=== PATIENT | male | born 1965 | race Caucasian/White ===

== ENCOUNTER 2016-11-20 08:49 | Emergency (ER) | payer OTHER ==
[~2016-11-20] VITALS: Ht 165.1 cm; Wt 112.0 kg
[~2016-11-20 08:49] MED LIST: HYDR-3498 PO; IBUP800T25 PO; NAPR-260 PO; TRAM50TA2 PO
[2016-11-20 09:11] VITALS: Ht 165.1 cm; Wt 112.0 kg
[2016-11-20] MEDS ORDERED: ONDANSETRON 4 MG INJ IV STA (11:00)
[2016-11-20] MEDS ORDERED: morphine 4 MG/ML VIAL IV STA (11:00)
[2016-11-20] MEDS ORDERED: SOD CHLORIDE 0.9% 1,000 ML IV STA (11:00)
[2016-11-20] MEDS ORDERED: OMEP20CA16 PO (11:34)
[2016-11-20] MEDS ORDERED: ONDA4TAB8 PO (11:35)
[2016-11-20 11:38] LABS: ADD SCAN DIFF NO
[2016-11-20 11:39] LABS: ADD UMIC YES; URINE BILIRUBIN (Dip) NEGATIVE (NEGATIVE); URINE BLOOD (Dip) NEGATIVE (NEGATIVE); URINE COLOR LT. YELLOW (YELLOW); URINE GLUCOSE (Dip) NEGATIVE (NEGATIVE); URINE KETONES (Dip) NEGATIVE (NEGATIVE); URINE LEUKOCYTE ESTERASE (Dip) NEGATIVE (NEGATIVE); URINE NITRITE (Dip) NEGATIVE (NEGATIVE); URINE TOTAL PROTEIN (Dip) TRACE (NEGATIVE); URINE UROBILINOGEN (Dip) 1.0 E.U./dL (0.1-1.0)
[2016-11-20] MEDS ORDERED: OSLT75C PO (11:39)
[2016-11-20] MEDS ORDERED: AMO500 PO (11:39)
[2016-11-20] MEDS ORDERED: IBUP-1542 PO (11:40)
[2016-11-20 11:42] LABS: BASOPHILS % 0.6 % (0.0-2.0); EOSINOPHILS # 0.5 10^3/ul (0.0-0.5); EOSINOPHILS % 10.2 % (0.0-7.0); HEMOGLOBIN 15.1 g/dl (14.0-18.0); LYMPHOCYTES % 38.4 % (15.0-51.0); MEAN CORPUSCULAR HEMOGLOBIN 28.1 pg (29.0-33.0); MEAN CORPUSCULAR HGB CONC 32.8 g/dl (32.0-37.0); MEAN CORPUSCULAR VOLUME 85.7 fl (82.0-101.0); MEAN PLATELET VOLUME 10.5 fl (7.4-10.4); MONOCYTE # 0.5 10^3/ul (0.3-0.9); MONOCYTES % 9.8 % (0.0-11.0); NEUTROPHIL # 2.1 10^3/ul (1.6-7.5); NEUTROPHILS % 40.8 % (39.0-77.0); PLATELET COUNT 226 10^3/UL (140-415); RED BLOOD COUNT 5.37 10^6/ul (4.70-6.10); WHITE BLOOD COUNT 5.1 10^3/ul (4.8-10.8)
[2016-11-20 11:52] LABS: INR 1.01; PROTIME 13.3 Sec (12.2-14.2)
[2016-11-20 11:53] LABS: PARTIAL THROMBOPLASTIN TIME 31.7 Sec (25.0-35.0)
[2016-11-20 11:54] LABS: ALANINE AMINOTRANSFERASE 36 IU/L (13-69); ALBUMIN 4.2 g/dl (3.3-4.9); ALBUMIN/GLOBULIN RATIO 1.13; ALKALINE PHOSPHATASE 98 IU/L (42-121); AMYLASE 101 U/L (11-123); ANION GAP 13 (8-16); ASPARTATE AMINO TRANSFERASE 32 IU/L (15-46); BILIRUBIN,INDIRECT 0.2 mg/dl (0-1.1); BILIRUBIN,TOTAL 0.2 mg/dl (0.2-1.3); BLOOD UREA NITROGEN 12 mg/dl (7-20); CALCIUM 8.7 mg/dl (8.4-10.2); CARBON DIOXIDE 28 mmol/L (21-31); CHLORIDE 101 mmol/L (97-110); CREATININE 0.69 mg/dl (0.61-1.24); GLUCOSE 111 mg/dl (70-220); POTASSIUM 3.7 mmol/L (3.5-5.1); SODIUM 138 mmol/L (135-144); TOTAL PROTEIN 7.9 g/dl (6.1-8.1)
--- NOTE | 2016-11-20 12:00 | ERD ---
ER Documentation Chief Complaint Date/Time DATE: 11/20/16 TIME: 11:55 Chief Complaint HAS AP HAS DIARRHEA ALSO HAS COUGH HPI This is a 51-year-old Vietnamese-speaking male presents to the emergency department complaining of abdominal pain that has been present for the past 3 days. The patient indicates the abdominal pain is a cramping like sensation and he has had multiple episodes of loose watery stools. 2 days ago the patient went to a clinic and was prescribed amoxicillin 500 mg twice daily, Zofran, Pepto-Bismol and omeprazole as well as ibuprofen. The patient indicates he was told he was placed on the amoxicillin for acute bronchitis as he is also been complaining of a nonproductive cough that has been present since the onset of his diarrhea and abdominal pain, 3 days prior to arrival. The patient states he has no shortness of breath at rest or exertion. He denies any hemoptysis hematemesis or melanotic stools. He indicates the ibuprofen helps with his abdominal cramping but as soon as the medication wears off the cramping will return in the cramping is exacerbated just prior to experiencing loose watery stools and is intermittent. He denies any back pain. He has no frequency urgency or dysuria. He denies any recent travel, prolonged immobilization and no recent hospitalizations. The patient indicates that since taking the amoxicillin his cough has improved but his abdominal cramping and diarrhea still persists. ROS All systems reviewed and are negative except as per history of present illness. Medications Home Meds Reported Medications Ibuprofen* (Motrin*) 600 Mg Tab, 600 MG PO Q6H Y for PAIN, TAB 11/20/16 Oseltamivir Phosphate* (Tamiflu*) 75 Mg Capsule, 75 MG PO BID, CAP STARTED 11-18-16 FOR 5 DAYS 11/20/16 Amoxicillin* (Amoxicillin*) 500 Mg Cap, 500 MG PO TID, #30 CAP STARTED 11-19-16 FOR 10 DAYS 11/20/16 Ondansetron Hcl* (Zofran*) 4 Mg Tablet, 4 MG PO Q6H Y for NAUSEA AND OR VOMITING , TAB 11/20/16 Omeprazole* (Omeprazole*) 20 Mg Capsule.dr, 20 MG PO DAILY, #30 CAP 11/20/16 Discontinued Scripts Tramadol HCl (Tramadol HCl) 50 Mg Tablet, 25 MG PO Q4 Y for PAIN, #20 TAB Prov:LOZA,GITA I. PERCUSSION INSTRUMENT REPAIRER 12/19/15 Naproxen* (Naprosyn*) 500 Mg Tablet, 500 MG PO BID Y for PAIN AND/OR INFLAMMATION, #30 TAB Prov:SOPHIA CHANEL DO 11/24/15 Hydrocodone Bit-Acetaminophen* (Tabor*) 5-325 Mg Tab, 1 TAB PO Q6 Y for PAIN, # 15 TAB Prov:SOPHIA CHANEL DO 11/24/15 Hydrocodone Bit-Acetaminophen* (Tabor*) 5-325 Mg Tab, 1 TAB PO Q6 Y for SEVERE PAIN LEVEL 7-10, #7 TAB Prov:JONATHAN,JEFERSON X. PERCUSSION INSTRUMENT REPAIRER 11/20/15 Ibuprofen* (Motrin*) 800 Mg Tab, 800 MG PO Q8 for PAIN AND OR ELEVATED TEMP, # 30 TAB Prov:JONATHAN,JEFERSON X. PERCUSSION INSTRUMENT REPAIRER 11/20/15 Allergies Allergies: Coded Allergies: No Known Allergy (Unverified , 11/20/16) PMhx/Soc History of Surgery: No Anesthesia Reaction: No Hx Neurological Disorder: No Hx Respiratory Disorders: No Hx Cardiac Disorders: No Hx Psychiatric Problems: No Hx Miscellaneous Medical Probl: No Hx Alcohol Use: No Hx Substance Use: No Hx Tobacco Use: No Physical Exam Vitals Vital Signs Date Time Temp Pulse Resp B/P Pulse Ox O2 Delivery O2 Flow Rate FiO2 11/20/16 09:11 98.6 80 18 158/86 95 Physical Exam Constitutional:Well-developed. Well-nourished. HEENT:Normocephalic. Atraumatic.Pupils were equal round reactive to light. Moist mucous membranes.No tonsillar exudates. Neck: No nuchal rigidity. No lymphadenopathy. No posterior cervical spine tenderness or step-offs. Respiratory: Not using accessory muscles of respiration.Lungs were clear to auscultation bilaterally. No rhonchi. No rales. No wheezing. Cardiovascular: Regular rate regular rhythm.No murmurs. No rubs were appreciated.S1, S2 normal. Distal pulses are palpable 2+ bilaterally. GI: Abdomen was obese so exam is limited due to body habitus. Tenderness in the left lower quadrant. Non Distended. No pulsatile abdominal masses or bruits. No rebound. No guarding. Bowel sounds were present and normal. Muscle skeletal: Full range of motion of both the upper and lower extremities bilaterally.Normal muscle tone.No assymetrical calf tenderness or swelling. Skin: No petechia, no purpura. No lesions on the palms or the soles of the feet. No maculopapular rash. NEURO: Patient was alert, awake, orientated x3.No facial droop. Gait observed and patient ambulates with a cane and this is his baseline. Speech had regular rate and rhythm. No focal neurological deficits. Result Diagram: 11/20/16 1120 11/20/16 1120 Results 24 hrs Laboratory Tests Test 11/20/16 11:00 11/20/16 11:20 Urine Color LT. YELLOW Urine Clarity CLEAR Urine pH 6.0 Urine Specific [place] 1.020 Urine Ketones NEGATIVE Urine Nitrite NEGATIVE Urine Bilirubin NEGATIVE Urine Urobilinogen 1.0 E.U./dL Urine Leukocyte Esterase NEGATIVE Urine Microscopic RBC NONE SEEN/HPF Urine Microscopic WBC 0-2/HPF Urine Hemoglobin NEGATIVE Urine Glucose NEGATIVE% Urine Total Protein TRACE White Blood Count 5.110^3/ul Red Blood Count 5.3710^6/ul Hemoglobin 15.1g/dl Hematocrit 46.0% Mean Corpuscular Volume 85.7fl Mean Corpuscular Hemoglobin 28.1pg Mean Corpuscular Hemoglobin Concent 32.8g/dl Red Cell Distribution Width 13.0% Platelet Count 82880^3/UL Mean Platelet Volume 10.5fl Neutrophils % 40.8% Lymphocytes % 38.4% Monocytes % 9.8% Eosinophils % 10.2% Basophils % 0.6% Nucleated Red Blood Cells % 0.0/100WBC Neutrophils # 2.110^3/ul Lymphocytes # 2.010^3/ul Monocytes # 0.510^3/ul Eosinophils # 0.510^3/ul Basophils # 0.010^3/ul Nucleated Red Blood Cells # 0.010^3/ul Prothrombin Time 13.3Sec Prothrombin Time Ratio 1.0 INR International Normalized Ratio 1.01 Activated Partial Thromboplast Time 31.7Sec Sodium Level 138mmol/L Potassium Level 3.7mmol/L Chloride Level 101mmol/L Carbon Dioxide Level 28mmol/L Anion Gap 13 Blood Urea Nitrogen 12mg/dl Creatinine 0.69mg/dl Glucose Level 111mg/dl Calcium Level 8.7mg/dl Total Bilirubin 0.2mg/dl Direct Bilirubin 0.00mg/dl Indirect Bilirubin 0.2mg/dl Aspartate Amino Transf (AST/SGOT) 32IU/L Alanine Aminotransferase (ALT/SGPT) 36IU/L Alkaline Phosphatase 98IU/L Troponin I < 0.012ng/ml Total Protein 7.9g/dl Albumin 4.2g/dl Globulin 3.70g/dl Albumin/Globulin Ratio 1.13 Amylase Level 101U/L Lipase 54U/L Current Medications Medications (Trade) Dose Ordered Sig/Alejandro Route PRN Reason Start Time Stop Time Status Last Admin Dose Admin Sodium Chloride (NS) 1,000 ml @ 1,000 mls/hr Q1H STAT IV 11/20/16 11:00 11/20/16 11:59 DC 11/20/16 11:42 Morphine Sulfate (morphine) 4 mg ONCE STAT IV 11/20/16 11:00 11/20/16 11:09 DC 11/20/16 11:41 Ondansetron HCl (Zofran Inj) 4 mg ONCE STAT IV 11/20/16 11:00 11/20/16 11:09 DC 11/20/16 11:41 IV Flush 10 ml 10 ml STK-MED ONCE .ROUTE 11/20/16 12:18 11/20/16 12:19 DC 11/20/16 12:38 Sodium Chloride (NS) 100 ml @ ud STK-MED ONCE .ROUTE 11/20/16 12:18 11/20/16 12:19 DC 11/20/16 12:39 Iohexol (Omnipaque 300mg/ ml) 150 ml STK-MED ONCE .ROUTE 11/20/16 12:18 11/20/16 12:19 DC 11/20/16 12:39 Procedures/MDM This patient presented to the emergency department with abdominal pain and was seen and evaluated by myself. My differential diagnosis included but was not limited to abdominal aortic aneurysm, appendicitis, pancreatitis, perforated peptic ulcer, perforated viscus, Boerhaaves syndrome or visceral pain such as diverticulitis, DKA, esophagitis, hepatitis or bowel obstruction. The patient was placed on a gambling monitor, continuous pulse oximetry, and IV access was established by nursing staff. The patient received IV fluids, intravenous morphine Zofran and was given Lomotil as an antidiarrheal. I did feel his symptoms were likely result of a viral etiology. However given the reproducible tenderness in the left lower quadrant I did feel is necessary to obtain a CT scan of the abdomen to rule out a bacterial process or surgical complication such as diverticulitis with perforation. CT scan or and reviewed by myself indicated the followin. Diverticulosis of the descending and sigmoid colon but no CT evidence of diverticulitis. 2. Unremarkable appendix. 3. Negative for intra-abdominal free air fluid abscesses or lymphadenopathy. 4. No evidence of urinary calcified calculi or obstructive uropathy. 5. Mild hepatic fatty infiltration. 6. Tiny fat containing umbilical hernia but no herniated bowel or strangulation. 12 Lead EKG tracing ordered and reviewed by myself showed in order to evaluate for atypical myocardial infarction: Sinus bradycardia 59 bpm and no arrhythmia. ND interval normal. QRS duration widened at 148 ms consistent with a right bundle branch block No ST segment elevation No ST segment depression. No changes consistent with acute ischemia. Observation Note: Time: 5 hours Family Hx: No Hypertension Evaluation: Multiple exams showed improving symptoms and no evidence of peritoneal signs. His pain completely resolved and I did feel symptoms were result of diverticulosis The patient was discharged home in fair condition. They were instructed to return to the emergency department at any time if there was any worsening of their condition. The patient stated they would follow up with their PCP in the next 24-48 hours to initiate a suitable medication regimen under the care of their PCP as well as to allow their PCP to monitor any drug reactions. The patient was discharged home with prescriptions after they gave informed consent to the new medication. They were also fully informed by myself on the adverse effects and adverse drug interactions in order to provide adequate safeguards to prevent possible adverse reactions to medications. Departure Diagnosis: Primary Impression: Diverticulosis Diverticulosis site: diverticulosis of large intestine Diverticulosis bleeding: diverticulosis without bleeding Qualified Code: K57.30 - Diverticulosis of large intestine without hemorrhage Condition: Fair RUPERT MACEDO Nov 20, 2016 12:00
[2016-11-20 12:03] LABS: URINE RBCS NONE SEEN /HPF (0)
[2016-11-20 12:18] LABS: TROPONIN-I < 0.012 ng/ml (0.00-0.12)
[2016-11-20] MEDS ORDERED: IOHEXOL 300MG/ML 150 ML BTL ONE (12:18)
[2016-11-20] MEDS ORDERED: SOD CHLORIDE 0.9% 100 ML ONE (12:18)
--- NOTE | 2016-11-20 12:46 | RADRPT ---
PROCEDURE: XR Chest. CLINICAL INDICATION: Chest pain TECHNIQUE: Single portable view of the chest was obtained COMPARISON: 11/24/2015 FINDINGS: The heart is enlarged. The lungs are clear. There is no pleural effusion or pneumothorax. RPTAT: AA IMPRESSION: Mild Cardiomegaly. .Vin Young MD, MD Date Time Electronically viewed and signed by .Vin Young MD, on 11/20/2016 12:45 .S/
--- NOTE | 2016-11-20 13:02 | RADRPT ---
PROCEDURE: CT Abdomen and pelvis with contrast. CLINICAL INDICATION: Abdominal pain and diarrhea TECHNIQUE: CT scan of the abdomen and pelvis with contrast was performed on a multidetector high-r esolution CT scan. The patient was scanned following the uncomplicated intravenous administration o f 100 ml Omnipaque-300. Coronal and sagittal reformatted images were obtained from the axial source images. Standard CT of the abdomen pelvis with contrast protocols were performed. The total exam CTDI equals 23.41 mGy and the total exam DLP equals 1489.64 mGy-cm. One or more of the following dose reduction techniques were used: - Automated exposure control. - Adjustment of the mA and/or kV according to patient size. Use of iterative reconstruction technique. COMPARISON: CT abdomen pelvis without contrast 11/24/2015 FINDINGS: There is diverticular changes of the descending and to a much lesser extent sigmoid colon without CT evidence of diverticulitis. The transverse and ascending colon are undistended but otherwise unrem arkable. The appendix is unremarkable. The stomach and small bowel are unremarkable. Negative for intra-abdominal free air, free fluid, abscesses or lymphadenopathy. The kidneys are normal in size without evidence of calcified renal calculi, hydronephrosis or ventra l masses bilaterally. Urinary bladder is contracted but otherwise unremarkable. The prostate gland is unremarkable. The liver is normal in size with mild hepatic fatty infiltration but no focal hepatic lesions. The s pleen pancreas and adrenal glands are unremarkable. The gallbladder is unremarkable and there is no evidence of biliary ductal dilation. The aorta is unremarkable. The lung bases are unremarkable. There is mild degenerative changes low er thoracic and lumbar spine. There are no acute osseous findings are osteoblastic/osteolytic lesio ns. There is a tiny umbilical fat-containing hernia but no herniated bowel or strangulation. IMPRESSION: 1. Diverticulosis of the descending and sigmoid colon but no CT evidence of diverticulitis. 2. Unremarkable appendix. 3. Negative for intra-abdominal free air fluid abscesses or lymphadenopathy. 4. No evidence of urinary calcified calculi or obstructive uropathy. 5. Mild hepatic fatty infiltration. 6. Tiny fat containing umbilical hernia but no herniated bowel or strangulation. RPTAT:AAJJ B Edward, Physician Date Time Electronically viewed and signed by Kay Leon Physician on 11/20/2016 13:01 BM/
[2016-11-20] MEDS ORDERED: HYDR-906 PO (14:56)
[2016-11-20 15:00] VITALS: RESP 18; TEMP 98.6
== END 2016-11-20 15:00 | disposition home or self-care (01) ==
LOC: E/R 08:49
DX: K57.30 Diverticulosis of large intestine without perforation or abscess without bleeding (principal); R40.2252 Coma scale, best verbal response, oriented, at arrival to emergency department; R07.9 Chest pain, unspecified; R40.2142 Coma scale, eyes open, spontaneous, at arrival to emergency department; R40.2362 Coma scale, best motor response, obeys commands, at arrival to emergency department
CPT/HCPCS: 71010; 74177; 80053; 81001; 82150; 83690; 84484; 85025; 85610; 85730; 87086; 93005; J2270; J2405; J7030; Q9967; Z7610; 81003; 96374; 96375